=== PATIENT | female | born 1985 | race Hispanic/Latino ===

== ENCOUNTER 2018-01-08 01:36 | Inpatient (IN) | payer SELFPAY ==
[~2018-01-08] VITALS: Ht 165.1 cm; Wt 85.3 kg
[2018-01-08] MEDS ORDERED: SODIUM CHLORIDE 0.9% 1000ML 1,000 ML IV ONE (01:50)
[2018-01-08] MEDS ORDERED: ONDANSETRON HCL 4 MG/2 ML VIAL ONE (01:50)
[2018-01-08 02:01] LABS: BASOPHILS % (AUTO) 0.8 % (0.0-5.0); EOSINOPHILS % (AUTO) 2.9 % (0.0-8.0); HEMATOCRIT 22.4 % (36-48); LYMPHOCYTES % (AUTO) 33.5 % (21.0-51.0); MEAN CORPUSCULAR HEMOGLOBIN 27.6 pg (27.0-33.0); MEAN CORPUSCULAR HGB CONC 33.3 g/dL (32.0-36.0); MONOCYTES % (AUTO) 6.3 % (3.0-13.0); NEUTROPHILS % (AUTO) 56.5 % (40.0-77.0); NUCLEATED RED BLOOD CELLS 0.1 % (0.0-0.19); PLATELET COUNT (AUTO) 264 K/uL (130-400); RED CELL DISTRIBUTION WIDTH 13.3 % (11.0-15.5); WHITE BLOOD COUNT (AUTO) 10.5 K/uL (4.8-10.8)
[2018-01-08 02:12] LABS: INR 0.95 (0.85-1.15); PARTIAL THROMBOPLASTIN TIME 25.2 SEC (26.3-35.5)
[2018-01-08 02:13] LABS: CREATININE 0.8 mg/dL (0.5-1.5); POTASSIUM 3.7 mmol/L (3.5-5.1)
[2018-01-08 02:15] LABS: ALBUMIN 3.3 g/dL (3.5-5.0); BILIRUBIN,DIRECT 0.1 mg/dL (0.0-0.3); BILIRUBIN,TOTAL 0.2 mg/dL (0.2-1.0); TOTAL PROTEIN, SERUM 7.4 g/dL (6.0-8.3)
[2018-01-08 03:06] LABS: HCG,QUAL RESULT NEGATIVE (NEGATIVE)
[2018-01-08 03:15] LABS: AMPHET/METH SCREEN,URINE NEGATIVE (NEGATIVE); BARBITURATE SCREEN, URINE NEGATIVE (NEGATIVE); BENZODIAZEPINES SCREEN,URINE NEGATIVE (NEGATIVE); CANNABINOID SCREEN,URINE NEGATIVE (NEGATIVE); COCAINE SCREEN,URINE NEGATIVE (NEGATIVE); OPIATE SCREEN,URINE NEGATIVE (NEGATIVE); PHENCYCLIDINE SCREEN,URINE NEGATIVE (NEGATIVE)
[2018-01-08 08:00] VITALS: BP 113/63
[2018-01-08] MEDS ORDERED: ACETAMINOPHEN 325 MG TAB PO PRN (08:00)
[2018-01-08] MEDS ORDERED: ONDANSETRON HCL 4 MG/2 ML VIAL IVP PRN (08:00)
[2018-01-08 11:20] VITALS: BP 99/66
[2018-01-08] MEDS: LACTATED RINGERS 1000ML 1,000 ML IV SCH ×2 (12:06→20:02)
[2018-01-08 14:14] LABS: BASOPHILS % (AUTO) 0.6 % (0.0-5.0); EOSINOPHILS % (AUTO) 3.2 % (0.0-8.0); HEMATOCRIT 29.5 % (36-48); LYMPHOCYTES % (AUTO) 36.3 % (21.0-51.0); MEAN CORPUSCULAR HEMOGLOBIN 29.7 pg (27.0-33.0); MEAN CORPUSCULAR HGB CONC 34.6 g/dL (32.0-36.0); MEAN CORPUSCULAR VOLUME 85.7 fL (79-99); MONOCYTES % (AUTO) 7.8 % (3.0-13.0); NEUTROPHILS % (AUTO) 52.1 % (40.0-77.0); NUCLEATED RED BLOOD CELLS 0.1 % (0.0-0.19); PLATELET COUNT (AUTO) 246 K/uL (130-400); RED BLOOD CELL COUNT(AUTO) 3.44 MIL/uL (4.00-5.50); RED CELL DISTRIBUTION WIDTH 14.3 % (11.0-15.5); WHITE BLOOD COUNT (AUTO) 8.2 K/uL (4.8-10.8)
[2018-01-08 14:41] LABS: ALBUMIN 2.8 g/dL (3.5-5.0); BILIRUBIN,TOTAL 0.8 mg/dL (0.2-1.0); CREATININE 0.8 mg/dL (0.5-1.5); POTASSIUM 4.1 mmol/L (3.5-5.1); TOTAL PROTEIN, SERUM 6.7 g/dL (6.0-8.3)
[2018-01-08 16:00] VITALS: BP 104/57
[2018-01-08 20:00] VITALS: BP 100/58
[2018-01-09 00:07] VITALS: BP 102/69
[2018-01-09] MEDS ORDERED: NORE7TAB PO (00:54)
[2018-01-09 04:03] VITALS: BP 105/60
[2018-01-09 04:35] LABS: BASOPHILS % (AUTO) 0.9 % (0.0-5.0); EOSINOPHILS % (AUTO) 3.7 % (0.0-8.0); HEMATOCRIT 32.3 % (36-48); LYMPHOCYTES % (AUTO) 41.7 % (21.0-51.0); MEAN CORPUSCULAR HEMOGLOBIN 28.4 pg (27.0-33.0); MEAN CORPUSCULAR HGB CONC 33.4 g/dL (32.0-36.0); MONOCYTES % (AUTO) 4.8 % (3.0-13.0); NEUTROPHILS % (AUTO) 48.9 % (40.0-77.0); NUCLEATED RED BLOOD CELLS 0.2 % (0.0-0.19); PLATELET COUNT (AUTO) 230 K/uL (130-400); RED CELL DISTRIBUTION WIDTH 14.2 % (11.0-15.5)
[2018-01-09 04:51] LABS: ALBUMIN 2.9 g/dL (3.5-5.0); BILIRUBIN,TOTAL 0.4 mg/dL (0.2-1.0); CREATININE 0.8 mg/dL (0.5-1.5); POTASSIUM 3.8 mmol/L (3.5-5.1)
[2018-01-09 08:07] VITALS: BP 98/57
[2018-01-09 11:13] VITALS: BP 101/69
== END 2018-01-09 11:15 | disposition home or self-care (01) | DRG 761 ==
LOC: EDH 01:36 → OBSVTOIN 01:37 → EDHIP 01:37 → WSH 08:00
PROVIDERS: ADMIT Hospitalist; ATTEND Hospitalist
PROC: 30233N1 Transfusion of Nonautologous Red Blood Cells into Peripheral Vein, Percutaneous Approach (ICD-10-PCS; principal; 2018-01-08)
DX: N92.0 Excessive and frequent menstruation with regular cycle (principal); D64.9 Anemia, unspecified
CPT/HCPCS: 36415; 36430; 71045; 80048; 80053; 80076; 80305; 81025; 84484; 85025; 85610; 85730; 86850; 86900; 86901; 86922; 93005; 99291; J2405; J7030; P9016

== ENCOUNTER 2021-04-21 20:29 | Emergency (ER) | payer OTHER ==
[~2021-04-21] VITALS: Ht 165.1 cm; Wt 91.2 kg
[~2021-04-21 20:29] MED LIST: NORE-134 PO
[2021-04-21 21:01] LABS: APPEARANCE,URINE Clear (CLEAR); BILIRUBIN,URINE Negative (NEGATIVE); COLOR,URINE Yellow (YELLOW); GLUCOSE, URINE (UA) Negative (NEGATIVE); KETONES,URINE Negative (NEGATIVE); LEUKOCYTE ESTERASE ,URINE Small (NEGATIVE); NITRATE,URINE Negative (NEGATIVE); OCCULT BLOOD,URINE Moderate (NEGATIVE); PH,URINE 6.5 (5.0-8.0); PROTEIN,URINE Negative (NEGATIVE)
[2021-04-21 21:07] LABS: HCG,QUAL RESULT NEGATIVE (NEGATIVE)
[2021-04-21 21:15] LABS: BACTERIA,URINE Few /HPF (None Seen)
[2021-04-21 21:16] LABS: SQUAMOUS EPITHELIAL CELL,UR Few /HPF (0-2)
[2021-04-21 21:16] LABS: BASOPHILS % (AUTO) 0.3 % (0.0-5.0); EOSINOPHILS % (AUTO) 1.2 % (0.0-8.0); HEMATOCRIT 27.2 % (36-48); LYMPHOCYTES % (AUTO) 31.9 % (21.0-51.0); MEAN CORPUSCULAR HEMOGLOBIN 26.1 pg (27.0-33.0); MEAN CORPUSCULAR HGB CONC 30.9 g/dL (32.0-36.0); MEAN CORPUSCULAR VOLUME 84.5 fL (79-99); MONOCYTES % (AUTO) 6.9 % (3.0-13.0); NEUTROPHILS % (AUTO) 59.3 % (40.0-77.0); PLATELET COUNT (AUTO) 257 K/uL (130-400); RED BLOOD CELL COUNT(AUTO) 3.22 MIL/uL (4.00-5.50); RED CELL DISTRIBUTION WIDTH 12.8 % (11.0-15.5); WHITE BLOOD COUNT (AUTO) 9.5 K/uL (4.8-10.8)
[2021-04-21 21:33] LABS: CREATININE 0.8 mg/dL (0.5-1.5); POTASSIUM 3.7 mmol/L (3.5-5.1)
[2021-04-21 21:38] LABS: ALBUMIN 3.4 g/dL (3.5-5.0); BILIRUBIN,TOTAL 0.1 mg/dL (0.2-1.0); TOTAL PROTEIN, SERUM 7.8 g/dL (6.0-8.3)
[2021-04-21] MEDS ORDERED: 0.9%NACL 1000ML 1,000 ML IV SCH (22:30)
[2021-04-22] MEDS ORDERED: DEXAMETHASONE 4 MG TAB PO ONE
[2021-04-22] MEDS ORDERED: ALBU8.5H8 IH (00:07)
[2021-04-22 00:20] VITALS: BP 130/78
== END 2021-04-22 00:21 | disposition home or self-care (01) ==
LOC: EDH 20:29
DX: U07.1 COVID-19 (principal); E86.9 Volume depletion, unspecified; D64.9 Anemia, unspecified; Z79.899 Other long term (current) drug therapy
CPT/HCPCS: 36415; 71045; 80053; 81001; 81025; 84484; 85025; 87635; 96360; 96361; 99285; C9803; J7030; J8540

== ENCOUNTER 2024-09-10 18:14 | Emergency (ER) | payer SELFPAY ==
[~2024-09-10] VITALS: Ht 162.6 cm; Wt 86.2 kg
[~2024-09-10 18:14] MED LIST changes: +ALBU8.5H8 IH
--- NOTE | 2024-09-10 18:21 | ERN ---
ED Note History of Present Illness Stated Complaint: PELVIC PAIN IN Chief Complaint: Pelvic Pain Time Seen by MD: 18:17 Dictation: PATIENT IS A 38-YEAR-OLD FEMALE STATES SHE IS HAVING EARLY , HAVING SOME LEFT ADNEXAL PAIN. SHE SAID SHE FOUND OUT SHE WAS ON SUNDAY WITH A HOME TEST. NO VAGINAL BLEEDING NO DISCHARGE NO FLANK PAIN. 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 Allergies: Coded Allergies: No Allergy Information Available (Verified Allergy, Unknown, 01/08/18) Home Meds Active Scripts Albuterol Sulfate (Proair Hfa) 8.5 Gm Hfa.aer.ad, 2 PUFF IH Q4HPRN, #1 INHALER 0 Refills Prov:OLIVIA AGUILAR MD 04/22/21 Reported Medications Norethindrone-Ethinyl Estrad (Ortho-Novum) 1 Each Tablet, 1 EACH PO DAILY, TAB 01/09/18 Past Medical History Past Medical History: Other Additional Past Medical Hx: ECTOPIC PREGNANYC Surgical History: Other Surgical History Other: SINGLE FALLOPIAN TUBE REMVOAL Social History: Negative : 3 Para: 1 Aborts: 1 RN Note Reviewed/Agreed w/PFSH: Yes Review of System Dictation CONSTITUTIONAL: NEGATIVE EXCEPT FOR HPI HEAD/FACE: NEGATIVE EXCEPT FOR HPI EENT: NEGATIVE EXCEPT FOR HPI RESPIRATORY: NEGATIVE EXCEPT FOR HPI GASTROINTESTINAL/ABDOMINAL: NEGATIVE EXCEPT FOR HPI LEFT ADNEXAL/PELVIC PAIN GENITOURINARY: NEGATIVE EXCEPT FOR HPI MUSCULOSKELETAL: NEGATIVE EXCEPT FOR HPI INTEGUMENTARY: NEGATIVE EXCEPT FOR HPI NEUROLOGICAL/PSYCH: NEGATIVE EXCEPT FOR HPI HEMATOLOGIC/LYMPHATIC: NEGATIVE EXCEPT FOR HPI ALL SYSTEMS NEGATIVE, EXCEPT NOTED ABOVE. 13 POINT REVIEW OF SYSTEMS ASSESSED AND ALL NEGATIVE EXCEPT FOR ABOVE. Initial Vital Sign VS Vital Signs Date Time Temp Pulse Resp B/P (MAP) Pulse Ox O2 Delivery O2 Flow Rate FiO2 09/10/ 18:15 98.1 79 16 120/73 98 0 Physical Exam Dictation VITAL SIGNS REVIEWED GENERAL APPEARANCE: ALERT, ORIENTED X 3, NO ACUTE DISTRESS, WELL DEVELOPED, NOURISHED. OBESE HEAD AND FACE: NON-TRAUMATIC. EYES: PERRL, PINK CONJUNCTIVAS, EYELID NO TRAUMA, ANTERIOR CHAMBER WITH ARCUS SENILIS. EARS: PINNAS INTACT AND NO SIGNS OF TRAUMA OR ERYTHEMA EAR CANALS CLEAR AND NO DISCHARGE TM NO ERYTHEMA NOSE: NO DISCHARGE, NO BLEEDING. OROPHARYNX: MOUTH NORMAL, TONGUE PINK, PHARYNX CLEAR,NO ERYTHEMA, TONSILS NO EXUDATES, NO ABSCESSES NOTED, MUCOUS MEMBRANE MOIST NECK: SUPPLE, NON-TENDER, NO THYROMEGALY, NO MASSES, NO JVD, NO BRUITS BREAST:DEFERRED CHEST:NO TENDERNESS, NO CREPITUS, NO PARADOXICAL MOVEMENT, NO RETRACTIONS LUNGS:CLEAR, WELL-VENTILATED, SYMMETRIC, NO RALES, NO WHEEZING, NO RHONCHI, NO STRIDOR, GOOD BREATH SOUNDS BILATERALLY HEART: REGULAR RATE, REGULAR RHYTHM, NO MURMUR, NO GALLOPS VASCULAR: NO PERIPHERAL EDEMA, ABDOMEN: SOFT, POSITIVE BOWEL SOUNDS, NONDISTENDED, NO GUARDING, NONTENDER, NO REBOUND, NO MASSES NO HEPATOMEGALY, NO SPLENOMEGALY, NO NUGENT'S SIGN, NO HERNIAS. RECTAL: DEFERRED GENITAL: DEFERRED NEUROLOGICAL: NORMAL SPEECH, MOTOR FUNCTION INTACT, SENSORY FUNCTION INTACT MUSCULOSKELETAL: NECK NONTENDER, FULL RANGE OF MOTION, BACK NONTENDER, FULL RANGE OF MOTION, EXTREMITIES: NONTENDER, FULL RANGE OF MOTION SKIN: COLOR PINK, DRY, NO TURGOR, NO RASH, NO LACERATIONS, NO ABRASIONS, NO CONTUSIONS. LYMPHATIC: DEFERRED Results (Laboratory/Radiology) Laboratory/Radiology Laboratory Tests Test 09/10/24 18:43 09/10/24 19:07 Urine Color LIGHT-YELLOW (YELLOW) Urine Appearance CLOUDY (CLEAR) H Urine pH 6.0 (5.0-8.0) Urine Specific Victor 1.019 (1.001-1.031) Urine Protein NEGATIVE mg/dL (NEGATIVE) Urine Glucose (UA) NEGATIVE mg/dL (NEGATIVE) Urine Ketones NEGATIVE mg/dL (NEGATIVE) Urine Occult Blood LARGE (NEGATIVE) H Urine Nitrate 2+ (NEGATIVE) H Urine Bilirubin NEGATIVE mg/dL (NEGATIVE) Urine Urobilinogen 0.2 mg/dL (0.2-1.0) Urine Leukocyte Esterase 250 Josiah/uL (NEGATIVE) H Urine RBC 2-5 /HPF (0-1) H Urine WBC 11-25 /HPF (0-1) H Urine Squamous Epithelial Cells MOD /HPF (0-2) Urine Bacteria RARE /HPF (None Seen) White Blood Count 9.5 K/uL (4.8-10.8) Red Blood Count 4.46 MIL/uL (4.00-5.50) Hemoglobin 12.5 g/dL (12.0-16.0) Hematocrit 37.3 % (36-48) Mean Corpuscular Volume 83.6 fL (79-99) Mean Corpuscular Hemoglobin 28.0 pg (27.0-33.0) Mean Corpuscular Hemoglobin Concent 33.5 g/dL (32.0-36.0) Red Cell Distribution Width 13.1 % (11.0-15.5) Platelet Count 235 K/uL (130-400) Mean Platelet Volume 9.5 fL (7.5-10.5) Immature Granulocyte % (Auto) 0.4 % (0-1) Neutrophils (%) (Auto) 54.1 % (40.0-77.0) Lymphocytes (%) (Auto) 35.9 % (21.0-51.0) Monocytes (%) (Auto) 8.0 % (3.0-13.0) Eosinophils (%) (Auto) 1.2 % (0.0-8.0) Basophils (%) (Auto) 0.4 % (0.0-5.0) Neutrophils # (Auto) 5.1 K/uL (1.8-7.7) Lymphocytes # (Auto) 3.4 K/uL (1.0-4.8) Monocytes # (Auto) 0.8 K/uL (0.1-1.0) Eosinophils # (Auto) 0.11 K/uL (0.00-0.70) Basophils # (Auto) 0.04 K/uL (0.00-0.20) Absolute Immature Granulocyte (auto 0.04 K/uL (0-1) Nucleated Red Blood Cells 0.0 % (0.0-0.19) Sodium Level 134 mmol/L (136-145) L Potassium Level 3.7 mmol/L (3.5-5.1) Chloride Level 100 mmol/L (101-111) L Carbon Dioxide Level 25 mmol/L (21-32) Blood Urea Nitrogen 10 mg/dL (7-18) Creatinine 0.7 mg/dL (0.5-1.0) Glomerular Filtration Rate Calc 115 mL/min (>90) Random Glucose 90 mg/dL (70-105) Total Calcium 8.7 mg/dL (8.5-10.1) Human Chorionic Gonadotropin, Quant 74749 mIU/mL (0-5) H ULTRASOUND OB LESS THAN 14 WEEKS ULTRASOUND ABD VASCULAR LIMITED INDICATION: Pelvic pain COMPARISONS: None TECHNIQUE: Transabdominal real-time sonographic images were acquired earlier, and subsequently made available for review. FINDINGS: The uterus measures 8.7 x 5.5 x 5.1 cm. The uterus is normal in echotexture and contour. Single intrauterine gestational sac measuring 1.5 cm corresponds to estimated sonographic gestational age of 6 weeks 4 days +/- 4 days, but no pole demonstrated. The right ovary measures 3.3 x 1.9 x 3.5 cm. 1.6 cm right ovarian dominant follicle. The right ovary is normal in size, shape and echogenicity. No right adnexal masses demonstrated. Color Doppler flow is normal throughout the right ovary. Spectral Doppler analysis demonstrates a normal waveform pattern. The left ovary measures 2.6 x 1.8 x 2.7 cm. The left ovary is normal in size, shape and echogenicity. No left adnexal masses demonstrated. Color Doppler flow is normal throughout the left ovary. Spectral Doppler analysis demonstrates a normal waveform pattern. No free pelvic fluid demonstrated. IMPRESSION: Findings suggesting early intrauterine gestation for which continued surveillance of beta-hCG levels and short-term follow-up sonographic imaging is recommended. Labs Reviewed?: Yes ED Course ED Course Orders Procedure Category Date Status Time Cbc With Differential LAB 09/10/24 Complete 18:19 Hcg,Quantitative LAB 09/10/24 Complete 18:19 Us Ob <14 Weeks US 09/10/24 Resulted 18:19 Type And Screen BBK 09/10/24 Complete 18:19 Basic Metabolic Panel LAB 09/10/24 Complete 18:19 Urinalysis Profile LAB 09/10/24 Complete 18:56 Culture Urine JNAY 09/10/24 In Process 19:53 Vital Signs Date Time Temp Pulse Resp B/P (MAP) Pulse Ox O2 Delivery O2 Flow Rate FiO2 09/10/24 18:15 98.1 79 16 120/73 98 0 2009/patient discharged home with pelvic pain and early . There is an intrauterine sac, no pole. Recommend serial follow up with OB for hCG is and sonograms. No evidence of ectopic Medical Decision Making MDM Medical discharge making based on basic labs for to include beta hCG an ultrasound[place] [address] Patient has a intrauterine sac without pull. Serial follow up with the surgery scheduling coordinator recommended. DX & DISP Disposition: Discharge Departure Impression: Primary Impression: Pelvic pain affecting Additional Impressions: Acute UTI, Hyponatremia, Hypochloremia Condition: Stable Scripts Amoxicillin/Potassium Clav (Amox Tr-K Clv 875-125 mg Tab) 875 Mg-125 Mg Tablet 1 EACH PO BID for 7 Days, #14 TAB 0 Refills Prov: LARRY POLLARD NP 09/10/24 Additional Instructions: Follow-up with primary care provider in 1 to 2 days. Take medications as directed here in the emergency room. Okay to continue home medications unless otherwise discussed during your visit in the emergency room today. Return to your nearest emergency room if symptoms worsen or if there is no improvement. Call 911 if you need immediate assistance. Take Tylenol [id number] as needed and if no contraindications are present. Increase oral hydration. A wound culture or urine culture was ordered here in the emergency room department please follow-up with primary care provider and advise them to get repeat ports from our facility. If you had any [place] wrap/splints that were applied here, please do not remove them until you see your primary care or specialty. Continue vitamins [id number] with food daily. Take antibiotics as directed until gone. , increase your water intake., Tylenol only for pain. No alcohol, no tobacco, no [id number] medications except Tylenol until cleared by your surgery scheduling coordinator doctor. Follow up with him in the next 1-2 days. Referrals: SELF,REFERRAL (PCP) Time of Disposition: 20:14 I have reviewed the case, and I agree with, Diagnosis and Plan LARRY POLLARD NP Sep 10, 2024 18:21
--- NOTE | 2024-09-10 18:54 | HMCIMG ---
ULTRASOUND OB LESS THAN 14 WEEKS ULTRASOUND ABD VASCULAR LIMITED INDICATION: Pelvic pain COMPARISONS: None TECHNIQUE: Transabdominal real-time sonographic images were acquired earlier, and subsequently made available for review. FINDINGS: The uterus measures 8.7 x 5.5 x 5.1 cm. The uterus is normal in echotexture and contour. Single intrauterine gestational sac measuring 1.5 cm corresponds to estimated sonographic gestational age of 6 weeks 4 days +/- 4 days, but no pole demonstrated. The right ovary measures 3.3 x 1.9 x 3.5 cm. 1.6 cm right ovarian dominant follicle. The right ovary is normal in size, shape and echogenicity. No right adnexal masses demonstrated. Color Doppler flow is normal throughout the right ovary. Spectral Doppler analysis demonstrates a normal waveform pattern. The left ovary measures 2.6 x 1.8 x 2.7 cm. The left ovary is normal in size, shape and echogenicity. No left adnexal masses demonstrated. Color Doppler flow is normal throughout the left ovary. Spectral Doppler analysis demonstrates a normal waveform pattern. No free pelvic fluid demonstrated. IMPRESSION: Findings suggesting early intrauterine gestation for which continued surveillance of beta-hCG levels and short-term follow-up sonographic imaging is recommended.
[2024-09-10 19:20] LABS: BASOPHILS # (AUTO) 0.04 K/uL (0.00-0.20); BASOPHILS % (AUTO) 0.4 % (0.0-5.0); EOSINOPHILS # (AUTO) 0.11 K/uL (0.00-0.70); EOSINOPHILS % (AUTO) 1.2 % (0.0-8.0); HEMATOCRIT 37.3 % (36-48); IMMATURE GRANULOCYTE ABSOLUTE 0.04 K/uL (0-1); LYMPHOCYTES # (AUTO) 3.4 K/uL (1.0-4.8); LYMPHOCYTES % (AUTO) 35.9 % (21.0-51.0); MEAN CORPUSCULAR HGB CONC 33.5 g/dL (32.0-36.0); MEAN CORPUSCULAR VOLUME 83.6 fL (79-99); MONOCYTES # (AUTO) 0.8 K/uL (0.1-1.0); NEUTROPHILS # (AUTO) 5.1 K/uL (1.8-7.7); NEUTROPHILS % (AUTO) 54.1 % (40.0-77.0); PLATELET COUNT (AUTO) 235 K/uL (130-400); RED BLOOD CELL COUNT(AUTO) 4.46 MIL/uL (4.00-5.50); RED CELL DISTRIBUTION WIDTH 13.1 % (11.0-15.5); WHITE BLOOD COUNT (AUTO) 9.5 K/uL (4.8-10.8)
[2024-09-10 19:30] LABS: CREATININE 0.7 mg/dL (0.5-1.0); POTASSIUM 3.7 mmol/L (3.5-5.1)
[2024-09-10 19:44] LABS: APPEARANCE,URINE CLOUDY (CLEAR); BILIRUBIN,URINE NEGATIVE (NEGATIVE); COLOR,URINE LIGHT-YELLOW (YELLOW); GLUCOSE, URINE (UA) NEGATIVE (NEGATIVE); KETONES,URINE NEGATIVE (NEGATIVE); LEUKOCYTE ESTERASE ,URINE 250 Leu/uL (NEGATIVE); NITRATE,URINE 2+ (NEGATIVE); OCCULT BLOOD,URINE LARGE (NEGATIVE); PROTEIN,URINE NEGATIVE (NEGATIVE); UROBILINOGEN,URINE 0.2 mg/dL (0.2-1.0)
[2024-09-10 19:53] LABS: ADD UA MICROSCOPIC YES
[2024-09-10 19:58] LABS: BACTERIA,URINE RARE /HPF (None Seen); MUCUS,URINE RARE LPF (None Seen); SQUAMOUS EPITHELIAL CELL,UR MOD /HPF (0-2)
[2024-09-10] MEDS ORDERED: AMOX1TAB16 PO (20:15)
[2024-09-10 22:02] VITALS: BP 124/74; PULSE 74; RESP 18; TEMP 98.1; O2SAT 98
--- NOTE | 2024-09-12 10:52 | NUR ---
UPON REVIEW OF CULTURE RESULTS BY DR. ARDON, PT NEEDS TO FOLLOW UP WITH OB/PCP FOR FURTHER TX. CALLED PT AND MADE PT AWARE. PT TAUGHT BACK ON FOLLOWING UP WITH OB.
== END 2024-09-10 22:06 | disposition home or self-care (01) ==
LOC: EDH 18:14
DX: O26.90 Pregnancy related conditions, unspecified, unspecified trimester (principal); R10.2 Pelvic and perineal pain; E87.1 Hypo-osmolality and hyponatremia; E87.8 Other disorders of electrolyte and fluid balance, not elsewhere classified; O23.40 Unspecified infection of urinary tract in pregnancy, unspecified trimester; N39.0 Urinary tract infection, site not specified
CPT/HCPCS: 36415; 76801; 80048; 81001; 84702; 85025; 86850; 86900; 86901; 87086; 87186; 99284